=== PATIENT | female | born 1965 | race Caucasian/White ===

== ENCOUNTER 2018-08-08 14:40 | Emergency (ER) | payer BC, SELFPAY ==
[2018-08-08 14:44] VITALS: BP 167/97; PULSE 65; RESP 20; TEMP 36.6; O2SAT 98
[2018-08-08 17:25] VITALS: BP 146/94; PULSE 71; RESP 18; TEMP 36.8; O2SAT 97
[2018-08-08] MEDS: Amoxicillin 500 MG CAP PO (18:19)
--- NOTE | 2018-08-08 23:19 | ED.GENADUL_ITS ---
Discharge Plan Disposition Patient Disposition: HOME Discharge Details Chief Complaint: DentalOral Clinical Impression: Abscess, dental Primary Care Provider: None,None ED Provider: Timothy Higgins Home Meds and New Rx's Prescriptions: New amoxicillin 500 mg capsule 500 mg PO TID 10 Days Qty: 30 RF: 0 Continued naproxen sodium [Aleve] 220 mg Tablet 220 mg PO BID-TID PRNRF: 0 vitamin B complex Capsule 1 cap PO DAILY RF: 0 Tumeric PO DAILY RF: 0 Discharge Instructions Instructions: Dental Abscess (ED) Additional Instructions: Follow-up with your dentist next week. Return to the emergency department if you develop fever, worsening pain, redness or swelling. Discharge Data Discharge Date/Time-TO BE ENTERED AT DEPARTURE: 08/08/18 18:25 Discharge Physician: Timothy Higgins [facility] Patient presents for evaluation of 4 days of slowly progressing pain right upper molar. Denies fever, chills, lethargy, dysphasia, facial pain. General Date/Time Provider Initiated Documentation: 08/08/18 18:09 . Related Data Home Medications Medication Instructions Recorded Confirmed Tumeric PO DAILY 08/08/18 amoxicillin 500 mg PO TID 10 Days #30 cap 08/08/18 naproxen sodium [Aleve] 220 mg PO BID-TID PRN 08/08/18 08/08/18 vitamin B complex 1 cap PO DAILY 08/08/18 08/08/18 Previous Rx's Medication Instructions Recorded amoxicillin 500 mg PO TID 10 Days #30 cap 08/08/18 Allergies Allergy/AdvReac Type Severity Reaction Status Date / Time peanut Allergy Unverified 08/08/18 14:47 General Stated Complaint: DentalOral JAIME: 4 Review of Systems Constitutional Denies chills, Denies fatigue, Denies fever(s) and Denies lethargy Eyes Denies loss of vision ENT Denies nasal congestion and Denies sore throat Cardiovascular Denies chest pain and Denies dyspnea Respiratory Denies cough and Denies dyspnea Gastrointestinal Denies nausea and Denies vomiting Musculoskeletal Denies back pain, Denies muscle weakness and Denies numbness Integumentary/Breasts Denies rash Neurologic Denies focal weakness, Denies loss of vision and Denies numbness Endocrine Denies fatigue Hematologic/Lymphatic Denies easy bruising PFSH Social History Smoking/Tobacco Use Status: Never Alcohol Intake: current Alcohol Intake frequency: holidays/special occasions only Alcohol type: wine Drug use: Never Substance use type: does not use Do you feel safe at home: Yes Do you feel safe in your relationship?: Yes Exam Const General: cooperative, healthy appearing and no acute distress HENMT Head: normal to inspection Ears: hearing grossly normal bilaterally Other: Periapical tenderness buccal mucosa #2 Eyes EOM: EOM intact bilaterally Neck Neck: normal visual inspection Resp Effort & Inspection: normal respiratory effort Skin General skin exam: no rashes or lesions noted Neuro General: alert, awake and oriented x3 Speech: speech normal Gait: normal gait Extrem General: normal to inspection Course Vital Signs Temperature 36.6 C 08/08/18 14:44 Pulse 65 08/08/18 14:44 Respiratory Rate 20 08/08/18 14:44 Blood Pressure 167/97 H 08/08/18 14:44 Pulse Oximetry 98 08/08/18 14:44 Temperature 36.8 C 08/08/18 17:25 Temperature Source Skin 08/08/18 17:25 Pulse 71 08/08/18 17:25 Respiratory Rate 18 08/08/18 17:25 Respiratory Effort Non-Labored 08/08/18 17:25 Respiratory Depth Normal 08/08/18 17:25 Respiratory Pattern Normal 08/08/18 17:25 Blood Pressure 146/94 H 08/08/18 17:25 Blood Pressure Mean 111 08/08/18 17:25 Blood Pressure Position Sitting 08/08/18 17:25 Pulse Oximetry 97 08/08/18 17:25 Oxygen Delivery Method Room Air 08/08/18 17:25 Oxygen Flow Rate 0 08/08/18 17:25 Pain Level 6 08/08/18 17:25
== END 2018-08-08 18:25 | disposition home or self-care (01) ==
PROVIDERS: Emergency Provider Physician Assistant Medical
DX: K04.7 Periapical abscess without sinus (principal)
CPT/HCPCS: 99283

== ENCOUNTER 2020-07-30 08:29 | Emergency (ER) | payer OTHER, SELFPAY ==
[2020-07-30 08:45] VITALS: BP 130/79; PULSE 84; RESP 16; TEMP 36.3; O2SAT 100
--- NOTE | 2020-07-30 09:02 | ED.GENADUL_ITS ---
Discharge Plan Disposition Patient Disposition: HOME Condition: Stable Discharge Details Clinical Impression: Sciatica Primary Care Provider: None,None ED Provider: Jayleen Santiago Home Meds and New Rx's Prescriptions: New methocarbamol 500 mg tablet 500 mg PO Q6H PRN (Reason: muscle spasm) Qty: 14 RF: 0 prednisone 20 mg tablet See Rx Instructions .ROUTE .COMPLEX Qty: 18 RF: 0 Continued naproxen sodium [Aleve] 220 mg Tablet 220 mg PO BID-TID PRNRF: 0 vitamin B complex Capsule 1 cap PO DAILY RF: 0 Tumeric PO DAILY RF: 0 Discharge Instructions Instructions: Sciatica (ED) Additional Instructions: Alternate ice and heat to the affected area(s) several times daily for 20 minutes at a time. Your prescriptions have been sent electronically to your pharmacy. Call the pharmacy to make sure your prescriptions are ready before pickup. Take the prescriptions as directed. Alternate tylenol and motrin as needed and directed for pain. Take the oxycodone for pain not relieved with Tylenol or Motrin. You will receive a call from care management regarding a follow-up appointment with a primary care doctor to establish care and for follow-up for your hip and leg pain. Call the physical therapy office for a follow-up appointment for evaluation and potential treatment once your acute pain is resolved. Return to the emergency department with any worsening or new concerning symptoms . Stand Alone Forms: Physical Therapy Referral Discharge Data Discharge Physician: Jayleen Santiago Medical Decision Making 8060 -- 55-year-old female with 6 weeks of left hip and buttock pain presents with worsening pain that is now radiating down her left thigh since standing up from a toilet at 1 AM. No cauda equina symptoms. Patient appears uncomfortable. She is standing and hunched over leaning on the stretcher. She has an antalgic gait. She has pain with attempting to sit on the stretcher. She has tenderness to palpation to her left buttock. She has no pain in her left hip or knee with passive range of motion. She has no left leg shortening or external rotation. There is no evidence of trauma or cellulitis. She is neurovascular intact. Differential diagnosis includes sciatica, disc herniation, lumbar strain, arthritis. Do not see indication for labs or imaging. Will give a dose of Toradol IM, Valium and prednisone p.o. and reassess. 1015 -- patient refused the oxycodone. She is still complaining of pain. She is now agreeable to the oxycodone. 1110 --patient reassessed and she feels much better and she feels good to go home. Will send with oxycodone to go. Prescriptions for methocarbamol and prednisone sent to her pharmacy. Patient was placed on care management list to arrange for a follow-up appointment with her primary care doctor. Usual and customary return precautions given prior to discharge. Medical Records Medical records reviewed: Yes I reviewed the patient's medical records. HPI General Mode of arrival: ambulatory . Date/Time Provider Initiated Documentation: 07/30/20 09:01 . Limitations to Documentation: no limitations . Information obtained by: patient . HPI Narrative: Pt is a 55 yo F who presents to the ED w/ a c/o left-sided buttock had and groin pain since 1 AM after standing up from the toilet at home. Patient states she has had left hip and buttock pain for the past 6 weeks after sitting on the floor with her dog that became worse upon standing. She states the pain had improved over the last few week and then became worse at 1 AM this morning. She to Tylenol at 1 AM without relief. She states the pain radiates from her left buttock, hip and around to her lateral and anterior thigh. She states the pain does not radiate past her knee. She denies any fever, abdominal pain, urinary symptoms, bowel or bladder incontinence, saddle anesthesia, leg weakness or numbness. Related Data Home Medications Medication Instructions Recorded Confirmed Tumeric PO DAILY 08/08/18 naproxen sodium [Aleve] 220 mg PO BID-TID PRN 08/08/18 07/30/20 vitamin B complex 1 cap PO DAILY 08/08/18 07/30/20 methocarbamol 500 mg PO Q6H PRN #14 tab 07/30/20 prednisone See Rx Instructions .ROUTE 07/30/20 .COMPLEX #18 tab Previous Rx's Medication Instructions Recorded methocarbamol 500 mg PO Q6H PRN #14 tab 07/30/20 prednisone See Rx Instructions .ROUTE 07/30/20 .COMPLEX #18 tab Allergies Allergy/AdvReac Type Severity Reaction Status Date / Time peanut Allergy Unverified 07/30/20 08:50 shellfish Allergy Uncoded 07/30/20 08:50 General Stated Complaint: Orthopedic JAIME: 4 Review of Systems All systems reviewed & are unremarkable except as noted in HPI and below Constitutional Constitutional: Reports as per HPI, Denies chills and Denies fever(s) Eyes Eyes: Denies blurry vision ENT Ears, Nose, Mouth, and Throat: Denies dizziness, Denies sore throat and Denies throat swelling Cardiovascular Cardiovascular: Denies chest pain and Denies dyspnea Respiratory Respiratory: Denies cough and Denies dyspnea Gastrointestinal Gastrointestinal: Denies abdominal pain, Denies diarrhea and Denies vomiting Genitourinary Genitourinary: Denies hematuria and Denies dysuria Musculoskeletal Musculoskeletal: Reports back pain and Denies numbness Integumentary/Breasts Skin/Breast: Denies lesions and Denies rash Neurologic Neurologic: Denies dizziness, Denies localized weakness and Denies numbness Allergic/Immunologic Allergic/Immunologic: Denies throat swelling [facility] Medical History (Updated 07/30/20 @ 10:07 by Jayleen Santiago DO) No significant past medical history Surgical History (Updated 07/30/20 @ 09:29 by Jayleen Santiago DO) History of oral surgery Social History Smoking/Tobacco Use Status: Never Smoking risk assessment performed?: Yes Alcohol Intake: current Alcohol Intake frequency: holidays/special occasions only Alcohol type: wine Drug use: Never Substance use type: does not use Do you feel safe at home: Yes Do you feel safe in your relationship?: Yes Exam Const General: cooperative and no acute distress HENMT Head: normal to inspection Face and sinus: normal facial exam Eyes General: appearance normal, both eyes and all related structures EOM: EOM intact bilaterally Neck Neck: normal visual inspection and No submandibular swelling Lymphatic: no lymphadenopathy noted Chest Chest: normal inspection of the chest and no tenderness Resp Effort & Inspection: normal respiratory effort and able to speak in complete sentences Auscultation: clear to auscultation bilaterally Cardio Rate: regular rate Rhythm: regular rhythm GI Inspection: normal to inspection Palpation: soft, not firm, not rigid and nontender Auscultation: normal bowel sounds Back/Spine/Pelvis Thoracic/Lumbar Spine: thoracic and lumbar spine normal to inspection, para spinal tenderness and No lumbar spinal tenderness Pelvis: no pain with anterior-posterior compression Skin General skin exam: no rashes or lesions noted Neuro General: patient alert, patient awake and patient oriented x3 Cognition: normal cognition Speech: speech normal Motor: muscle tone normal throughout and strength 5/5 throughout Sensory Exam: no sensory deficits noted DTR's: Rt Patellar: 2+, Lt Patellar: 2+, Rt Ankle: 2+ and Lt Ankle: 2+ Plantar Reflexes: Equivocal: bilateral (negative babinski b/l) Extrem General: normal to inspection, full ROM, capillary refill normal, no calf tenderness bilaterally and no edema Other: B/l distal pulses intact Psych Appearance: grossly normal Mental Status: mental status grossly normal Speech and Movement: speech and movement normal Affect: normal affect Course Vital Signs Vital signs: Vital Signs Temperature 97.3 F L 07/30/20 08:45 Pulse 84 07/30/20 08:45 Respiratory Rate 16 07/30/20 08:45 Blood Pressure 130/79 07/30/20 08:45 Pulse Oximetry 100 07/30/20 08:45 Temperature 97.3 F L 07/30/20 08:45 Temperature Source Skin 07/30/20 08:45 Pulse 84 07/30/20 08:45 Respiratory Rate 16 07/30/20 08:45 Respiratory Effort Non-Labored 07/30/20 08:45 Blood Pressure 130/79 07/30/20 08:45 Blood Pressure Position Standing 07/30/20 08:45 Pulse Oximetry 100 07/30/20 08:45 Oxygen Delivery Method Room Air 07/30/20 08:45 Oxygen Flow Rate 0 07/30/20 08:45 Pain Level 9 07/30/20 08:51
[2020-07-30] MEDS: Ketorolac 60 MG/2 ML VIAL IM (09:35)
[2020-07-30] MEDS: predniSONE 20 MG TAB 60 MG PO (09:35)
[2020-07-30] MEDS: diazePAM 5 MG TAB PO (09:35)
--- NOTE | 2020-07-30 10:22 | NUR.NOTE ---
Nursing Note: Referral for follow up of sciatica and establish care, within 2 weeks was given to Care Management. Rachel Florentino
[2020-07-30] MEDS: oxyCODONE 5 MG TAB PO (10:30)
== END 2020-07-30 11:32 | disposition home or self-care (01) ==
PROVIDERS: Emergency Provider Physician Assistant
DX: M54.32 Sciatica, left side (principal)
CPT/HCPCS: 96372; 99284; 99283; J1885; J7512

== ENCOUNTER 2020-08-01 15:23 | Outpatient (CLI) | payer OTHER, SELFPAY ==
--- NOTE | 2020-08-01 15:00 | DI.RAD_ITS ---
Exam(s) XR HIP LT COMPLETE AP PELVIS EXAM: XR HIP LT COMPLETE AP PELVIS CLINICAL HISTORY: Acute L hip pain with recent worsenin, stress frx? [id number] pain lt hip. TECHNIQUE: 2D digital imaging was performed. COMPARISON: No exams were available for comparison FINDINGS: BONES: No acute fracture is present. No bony destructive lesion is seen. JOINTS: No dislocation present. SOFT TISSUE: Normal. IMPRESSION: Unremarkable radiographs of the left hip. Unremarkable radiographs of the pelvis DATA REPOSITORY: RADIATION DOSE DELIVERED:
== END 2020-08-01 15:43 ==
PROVIDERS: PCP Family Medicine; Visit Provider Family Medicine
DX: M25.552 Pain in left hip (principal)
CPT/HCPCS: 73502